=== PATIENT | female | born 1990 | race American Indian/Alaskan Native ===

== ENCOUNTER 2016-11-18 23:56 | Emergency (ER) | payer BC ==
[2016-11-19] MEDS ORDERED: TYLENOL PR ONE (00:41)
[2016-11-19 01:14] LABS: Hematocrit 40.6 % (30.3-42.9); Hemoglobin 13.9 gm/dl (10.1-14.3); Mean Corpuscular HGB Conc 34 % (30-34); Mean Corpuscular Hemoglobin 28 pg (28-32); Mean Corpuscular Volume 83 fl (79-97); Platelet Count 309 K/mm3 (140-440); Red Blood Count 4.91 M/mm3 (3.65-5.03); Red Cell Distribution Width 13.1 % (13.2-15.2); White Blood Count 9.8 K/mm3 (4.5-11.0)
[2016-11-19 01:32] LABS: Alanine Aminotransferase 31 units/L (7-56); Albumin 4.5 g/dL (3.9-5); Albumin/Globulin Ratio 1.3 %; Alkaline Phosphatase 62 units/L (35-129); Anion Gap 21 mmol/L; BUN/Creatinine Ratio 15.71; Blood Urea Nitrogen 11 mg/dL (7-17); Carbon Dioxide 20 mmol/L (22-30); Chloride 100.8 mmol/L (98-107); Glucose 163 mg/dL (65-100); Lipase 24 units/L (13-60); Potassium 3.9 mmol/L (3.6-5.0); Sodium 138 mmol/L (137-145); Total Protein 7.9 g/dL (6.3-8.2)
[2016-11-19 02:25] LABS: Basophils % (Manual) 0 % (0.0-1.8); Blastocytes % (Manual) 0 %; Eosinophils % (Manual) 0 % (0.0-4.3); RBC Morphology Normal
[2016-11-19 02:26] LABS: Diff Status Complete; Giant Platelets Rare
[2016-11-19 03:27] LABS: Bilirubin,Urine NEG (Negative); Blood,Urine SM (Negative); Ketones,Urine TR mg/dL (Negative); Leukocyte Esterase,Urine NEG (Negative); Mucus,Urine FEW /HPF; Nitrite,Urine NEG (Negative); Protein,Urine <15 mg/dL mg/dL (Negative); Urobilinogen,Urine < 2.0 mg/dL (<2.0); WBC,Urine < 1.0 /HPF (0.0-6.0)
[2016-11-19] MEDS ORDERED: LEVAQUIN 500MG/100ML 500 MG/100 ML BAG IV ONE (06:35)
[2016-11-19] MEDS ORDERED: NACL 0.9% 1000 ML 2,000 ML IV ONE (06:35)
[2016-11-19] MEDS ORDERED: NACL ONE (06:51)
[2016-11-19] MEDS ORDERED: TORADOL IV ONE (08:07)
[2016-11-19] MEDS ORDERED: ZOFRAN IV ONE (08:08)
--- NOTE | 2016-11-19 08:59 | Cat Scan Report ---
CT SCAN OF THE ABDOMEN AND PELVIS WITH CONTRAST: HISTORY: Abdominal pain. TECHNIQUE: Helical CT in 1.25mm intervals following IV contrast. Sagittal and coronal reconstructions. FINDINGS: The liver is mildly enlarged with diffuse fatty infiltration. No focal liver mass or surface nodularity. No gallstones or biliary dilatation are noted. The spleen and pancreas demonstrate a normal size and attenuation with no evidence of abnormal mass. The kidneys are normal in size and position with no evidence of hydronephrosis or mass. The adrenal glands are normal. There is no intestinal obstruction or ascites. Normal appendix. The abdominal aorta is normal. The uterus and adnexa are unremarkable. An IUD is in place. There is no evidence of peritoneal air or fluid. There is no evidence of any abnormal masses or fluid collections within the pelvis. No adenopathy is identified. The bladder is normal. IMPRESSION: Mild hepatomegaly with diffuse fatty infiltration. Otherwise, unremarkable exam of the abdomen and pelvis. No acute process is noted.
[2016-11-19] MEDS ORDERED: NACL 0.9% 1000 ML 1,000 ML ONE (09:47)
--- NOTE | 2016-11-19 10:52 | Emergency Department Report ---
ED Abdominal Pain HPI - General Chief Complaint: Abdominal Pain Stated Complaint: VOMITTING, LEG PAIN, DEHYDRATION Time Seen by Provider: 11/19/16 06:34 Source: patient Mode of arrival: Wheelchair Limitations: No Limitations - History of Present Illness MD Complaint: abdominal pain -: Gradual, days(s) (1) Location: diffuse Radiation: none Migration to: no migration Severity: mild Severity scale (0 -10): 2 Quality: aching Consistency: intermittent Improves With: nothing Worsens With: nothing Context: possible food poisoning (symptoms occurred after eating at the cafeteria and work yesterday after 1300) Associated Symptoms: nausea, vomiting, diarrhea, fever. denies: chills, constipation, dysuria, hematemesis, hematochezia, melena, hematuria, anorexia, syncope - Related Data Previous Rx's Medication Instructions Recorded Last Taken Type Ibuprofen [Motrin] 600 mg PO Q6H PRN #20 tablet 11/19/16 Unknown Rx Allergies Allergy/AdvReac Type Severity Reaction Status Date / Time Penicillins Allergy Hives Verified 11/19/16 00:32 strawberry Allergy Hives Verified 11/19/16 00:33 ED Review of Systems ROS: Stated complaint: VOMITTING, LEG PAIN, DEHYDRATION Other details as noted in HPI Other: GENERAL: Fever. No weight change, fatigue, weakness, chills, or night sweats SKIN: No changes in skin or hair, no itching, no rashes, no jaundice HEAD: No trauma, headache, or visual changes EYES: No blurriness, tearing, itching, acute visual loss, conjunctival discoloration, or scleral icterus EARS: No hearing loss, tinnitus, vertigo, or earache NOSE: No rhinorrhea, stuffiness, sneezing, itching, or epistaxis MOUTH: No bleeding gums, hoarseness, sore throat, or swelling CARDIAC: No new murmur, chest pain, palpitations, dyspnea on exertion, orthopnea , PND, or edema RESPIRATORY: No shortness of breath, wheeze, cough, sputum production, hemoptysis, pneumonia, asthma, bronchitis, or emphysema GI: abdominal pain, nausea, vomiting, diarrhea. Denies constipation, bleeding , hematemesis, melena, hematochezia URINARY: No frequency, urgency, polyuria, dysuria, hematuria, or incontinence MUSCULOSKELETAL: No muscle weakness, joint stiffness, decrease in range of motion, redness, swelling NEUROLOGIC: No loss of sensation, numbness, tingling, tremors, weakness, paralysis, seizures HEMATOLOGIC: No anemia, easy bruising, bleeding, petechiae, or purpura ENDOCRINE: No hot or cold intolerance, sweating, polyuria, polydipsia or, polyphagia no thyroid problems PSYCHIATRIC: No change in mood, no anxiety, no depression Denies vag discharge or bleeding ED Past Medical Hx - Past Medical History Previous Medical History?: No - Surgical History Past Surgical History?: Yes Additional Surgical History: ABD HERNIA REPAIR - Social History Smoking Status: Never Smoker Substance Use Type: None - Medications Home Medications: Home Medications Medication Instructions Recorded Confirmed Last Taken Type Ibuprofen [Motrin] 600 mg PO Q6H PRN #20 tablet 11/19/16 Unknown Rx ED Physical Exam - General Limitations: No Limitations - Other Other exam information: GENERAL: Patient in no acute distress HEAD: Normocephalic, atraumatic EYES: PERRLA, EOM intact, no scleral icterus, visual jacobs and acuity wnl NOSE: No tenderness, discharge, sinus tenderness MOUTH: Dry mucous membranes. No erythema, bleeding, exudate HEART: Tachycardia heart rate 100-110. no murmur, S1-S2 are auscultated, pulses are symmetric LUNGS: bilateral breath sounds. No wheezing, rales, rhonchi ABDOMEN: Normal bowel sounds, no tenderness, no rebound, no guarding, no masses , no CVA tenderness MUSCULOSKELETAL: Normal joint range of motion, no redness, no swelling, no tenderness NEUROLOGIC: GCS 15, Alert and Oriented x3, Cranial nerves intact, normal sensation, normal strength, normal gait, no cerebellar deficit PSYCHIATRIC: No homicidal or suicidal ideation, no anxiety, no depression, no hallucinations SKIN: Skin is warm and dry, no wounds, no rashes ED Course Vital Signs 11/19/16 11/19/16 11/19/16 00:33 02:48 08:09 Temperature 100.7 F H 98.9 F Pulse Rate 124 H 103 H Respiratory 20 20 16 Rate Blood Pressure 136/78 Blood Pressure 140/82 [Left] O2 Sat by Pulse 98 96 98 Oximetry 11/19/16 11/19/16 11/19/16 08:13 09:08 10:42 Temperature 100.0 F H Pulse Rate 112 H 100 H Respiratory 18 16 Rate Blood Pressure Blood Pressure 128/72 [Left] O2 Sat by Pulse 98 Oximetry 11/19/16 11:17 Temperature 99.3 F Pulse Rate 103 H Respiratory 16 Rate Blood Pressure Blood Pressure 124/87 [Left] O2 Sat by Pulse 99 Oximetry ED Medical Decision Making - Lab Data Result diagrams: 11/19/16 00:48 11/19/16 00:48 - Radiology Data Radiology results: report reviewed - Medical Decision Making Patient comfortable. Updated with results. Plan discharge with outpatient follow up. Patient agrees with plan and will return if symptoms worsen. Critical care attestation.: If time is entered above; I have spent that time in minutes in the direct care of this critically ill patient, excluding procedure time. ED Disposition Clinical Impression: Vomiting and diarrhea Abdominal pain Qualifiers: Abdominal location: generalized Qualified Code(s): R10.84 - Generalized abdominal pain Fever Qualifiers: Fever type: unspecified Qualified Code(s): R50.9 - Fever, unspecified Disposition: DC-01 TO HOME OR SELFCARE Is pt being admited?: No Condition: Stable Instructions: Fever in Adults (ED), Acute Nausea and Vomiting (ED), Acute Diarrhea (ED), Abdominal Pain (ED) Prescriptions: Ibuprofen [Motrin] 600 mg PO Q6H PRN #20 tablet PRN Reason: Pain Referrals: PRIMARY CARE,MD [Primary Care Provider] - 2-3 Days Forms: Accompanied Note, Work/School Release Form(ED) Time of Disposition: 10:50
[2016-11-19 11:19] VITALS: BP 124/87
== END 2016-11-19 11:17 | disposition home or self-care (01) ==
LOC: ED 23:56
DX: R10.84 Generalized abdominal pain (principal); R11.2 Nausea with vomiting, unspecified; R50.9 Fever, unspecified; R19.7 Diarrhea, unspecified
CPT/HCPCS: 36415; 74177; 80053; 81001; 82140; 83690; 84703; 85007; 85025; 87040; 96361; 96365; 96375; 99285; J1885; J1956; J2405; J7030; Q9967